=== PATIENT | male | born 1995 | race Caucasian/White ===

== ENCOUNTER 2016-02-28 18:30 | Emergency (ER) | payer MEDICAID ==
--- NOTE | 2016-02-28 21:42 | ED Physician Chart ---
Chief Complaint/HPI - Patient Information Date Seen:: 02/28/16 Time Seen:: 21:30 Chief Complaint:: pharyngitis History of Present Illness:: location: throat quality: sharp pain severity: mild, mod duration: 2 weeks context: pt reports sore throat for 2 weeks. initially with fever, greater than 101F and then some loss of voice, sore throat persists and now with loss of voice pt is advised to come to ER by his mother. no current fever. no rhinorrhea, no cough. mod factors: none assoc s/s: none hx from pt. Allergies:: Allergies Allergy/AdvReac Type Severity Reaction Status Date / Time No Known Allergies Allergy Verified 02/28/16 18:49 Vitals:: Vital Signs - 8 hr 02/28/16 18:30 Temp 97.7 F HR 66 RR 16 BP 141/99 O2 Sat % 100 Historian:: Patient Review:: Nurse's Note Reviewed Review of Systems - Review of Systems General/Constitutional: No fever, No chills, No weight loss, No weakness, No diaphoresis, No edema, No loss of appetite Skin: No skin lesions, No rash, No bruising Head: No headache, No light-headedness Eyes: No loss of vision, No pain, No diplopia ENT: No earache, No nasal drainage, Sore throat, No tinnitus Neck: No neck pain, No swelling, No thyromegaly, No stiffness, No mass noted Cardio Vascular: No chest pain, No palpitations, No PND, No orthopnea, No edema Pulmonary: No SOB, No cough, No sputum, No wheezing GI: No nausea, No vomiting, No diarrhea, No pain, No melena, No hematochezia, No constipation, No hematemesis G/U: No dysuria, No frequency, No hematuria Musculoskeletal: No bone or joint pain, No back pain, No muscle pain Endocrine: No polyuria, No polydipsia Psychiatric: No prior psych history, No depression, No anxiety, No suicidal ideation Hematopoietic: No bruising, No lymphadenopathy Allergic/Immuno: No urticaria, No angioedema Neurological: No syncope, No focal symptoms, No weakness, No paresthesia, No headache, No seizure, No dizziness, No confusion, No vertigo Past Medical History - Past Medical History Past Medical History: No significant medical hx Family History: None Social History: Non Smoker, No Alcohol, No Drug Use, Single, Lives With Parents Surgical History: None Psychiatricy History: None Medication: None Family Medical History - Family Member Father Hx Family Hypertension: Yes Physical Exam - Physical Examination General/Constitutional: Awake, Well-developed, well-nourished, Alert, No distress, GCS 15, Non-toxic appearing, Ambulatory Head: Atraumatic Eyes: Lids, conjuctiva normal, PERRL, EOMI Skin: Nl inspection, No rash, No skin lesions, No ecchymosis, Well hydrated, No lymphadenopathy (mild palpable lymph nodes at bilateral upper neck. ) ENMT: External ears, nose nl, Nasal exam nl, Lips, teeth, gums nl, Oropharynx nl (oropharynx with posterior erythema, mild enlargement. scant exudate. ) Neck: Nontender, Full ROM w/o pain, No JVD, No nuchal rigidity, No bruit, No mass, No stridor Respiratory: Nl effort/Exclusion, Clear to Auscultation, No Wheeze/Rhonchi/Rales Cardio Vascular: RRR, No murmur, gallop, rubs, NL S1 S2 GI: No tenderness/rebounding/guarding, Normal BS's, Nondistended : No CVA tenderness Extremities: No tenderness or effusion, Full ROM, normal strength in all extremities, No edema, Normal digits & nails Neuro/Psych: Alert/oriented, Judgement/insight normal, Mood normal, Normal gait , No focal deficits Misc: normal gait, Normal back, No paraspinal tenderness Assessment - Assessment General Assessment: stable while in ER. ED Septic Shock - . Is Septic Shock (SBP<90, OR Lactate>4 mmol\L) present?: No - <6hrs of presentation: Vital Signs: Vital Signs - 8 hr 02/28/16 18:30 Temp 97.7 F HR 66 RR 16 BP 141/99 O2 Sat % 100 Reassessment (Disposition) - Reassessment Reassessment:: MDM: stable pt with history of febrile illness with only sore throat as symptoms. now with mild neck adenopathy and some midly enlarged tonsil. illness peaked about 2 weeks ago. this clinical history and exam is somewhat consistent with strep pharyngitis. will treat to reduce risk of renal sequelae. ER course: stable during ER course, no fever. Reassessment Condition:: Unchanged - Diagnosis Diagnosis:: pharyngitis, strep/other - Aftercare/Follow up Instructions Aftercare/Follow-Up Instructions:: Refer to Discharge Instructions Medication Prescribed:: penicillin 500mg po tid x 10 days - Patient Disposition Discharge/Transfer:: Home Condition at Disposition:: Stable
== END 2016-02-28 21:50 | disposition home or self-care (01) ==
LOC: ER 18:30
DX: J02.9 Acute pharyngitis, unspecified (principal)
CPT/HCPCS: Z7502